=== PATIENT | male | born 1955 | race Caucasian/White ===

== ENCOUNTER 2020-08-23 06:49 | Outpatient (REF) | payer OTHER, SELFPAY ==
[2020-08-23 07:16] LABS: MANUAL DIFF FLAG NO
[2020-08-23 07:33] LABS: Basophils Percent Auto 0.4 % (0-2); Eosinophils Absolute Auto 0.1 X10*3/uL (0.0-0.4); Eosinophils Percent Auto 2.4 % (0-4); Hematocrit 41.6 % (42-52); Hemoglobin 14.4 g/dl (14.0-18.0); Imm Gran Abs Auto 0.01 X10*3/uL (0.00-0.03); Imm Gran Pct Auto 0.2 % (0.0-0.4); Lymphocytes Absolute Auto 1.3 X10*3/uL (1.2-4.9); Lymphocytes Percent Auto 25.4 % (20-40); Mean Corpuscular HGB Conc 34.6 g/dl (31.0-36.0); Mean Corpuscular Hemoglobin 31.3 pg (27.0-33.0); Mean Corpuscular Volume 90.4 fL (80-98); Mean Platelet Volume 9.5 fL (9.4-12.4); Monocytes Absolute Auto 0.3 X10*3/uL (0.1-1.2); Monocytes Percent Auto 5.7 % (2-11); Neutrophils Absolute Auto 3.3 X10*3/uL (2.0-8.3); Neutrophils Percent Auto 65.9 % (45-73); Platelet Count 209 X10*3/uL (160-400); Red Cell Distribution Width 12.7 % (11.0-16.0); White Blood Count 5.1 X10*3/uL (4.8-10.8)
== END 2020-08-23 06:50 | disposition home or self-care (01) ==
LOC: HO.LAB 06:49
PROVIDERS: Visit Provider Family Medicine
DX: D72.819 Decreased white blood cell count, unspecified (principal)
CPT/HCPCS: 36415; 85025

== ENCOUNTER 2021-06-17 07:17 | Day surgery (SDC) | payer OTHER, SELFPAY ==
[2021-06-13 10:20] VITALS: BMI 26.0
--- NOTE | 2021-06-16 12:54 | HO.ANESPROP2 ---
Documented by User: Jamia Molina NP 06/16/21 12:56 HPI - Anesthesia Eval Consult details Narrative: 65yo M for Colonoscopy [facility] Past Medical History Medical History (Updated 06/16/21 @ 12:56 by Jamia Molina NP) No pertinent past medical history Surgical History Surgical History (Updated 06/13/21 @ 10:20 by Yasmine Mcguire, RN) Hx of colonoscopy Social History Social History Patient Tobacco Use Status: Never used Tobacco Use of substances other than those prescribed or required for medical reasons: No Are you DNR?: No Advance Directives: No Advance Directives Information Provided: No Meds Allergies Allergy/AdvReac Type Severity Reaction Status Date / Time No Known Allergies Allergy Verified 06/17/21 07:42 Home Medications Medication Instructions Recorded Confirmed Last Taken Type No Known Home Meds 06/17/21 06/17/21 Unknown History Exam Exam Date and Time: June 16, 2021 1254 Height,Weight and Vital Signs: Height 6 ft 2 in Weight 92.079 kg Assessment and Plan Assessment Anesthesia Assessment: Chart Reviewed Documented by User: Arlette Loya MD 06/17/21 08:26 [facility] Active Problems Active Problems: Healthy Past Medical History Medical History (Updated 06/16/21 @ 12:56 by Jamia Molina NP) No pertinent past medical history Family History Family history of problems with anesthesia: No Surgical History Surgical History (Updated 06/13/21 @ 10:20 by Yasmine Mcguire RN) Hx of colonoscopy History of Problems with Anesthesia: No Social History Social History Patient Tobacco Use Status: Never used Tobacco Use of substances other than those prescribed or required for medical reasons: No Are you DNR?: No Advance Directives: No Advance Directives Information Provided: No Meds Allergies Allergy/AdvReac Type Severity Reaction Status Date / Time No Known Allergies Allergy Verified 06/17/21 07:42 Home Medications Medication Instructions Recorded Confirmed Last Taken Type No Known Home Meds 06/17/21 06/17/21 Unknown History Exam Height,Weight and Vital Signs: Height 6 ft 2 in Weight 92.079 kg Vital Signs Temp Pulse Resp BP Pulse Ox 06/17/21 07:40 98.0 F 69 16 136/76 99 Airway Mallampati Class: II TM Dist: >3cm Neck ROM: Full Loose/Missing/Broken Teeth: No Heart: RRR Lungs: CTAB Assessment and Plan Assessment Anesthesia Assessment: Anesthesia Plan Discussed Final Anesthetic Review Family History of Problems with Anesthesia: No History of Problems with Anesthesia: No NPO: Yes ASA Class: I Final Preanesthetic Review: No Changes in Pt Med Stat, Meds/Allgs Chart Reviewed, Consent Obtained/Reviewed and Anes Risks/Benef Reviewed Patient Risk: Low Procedure Risk: Low Assessment/Block/Sedation in SS: Assess/Block/Sedation-SS Anesthetic Plan Anesthetic Plan: MAC: Disposition: Standard PACU
[2021-06-17 07:39] VITALS: BMI 26.0
[2021-06-17 07:40] VITALS: BP 136/76; PULSE 69; RESP 16; TEMP 36.7; O2SAT 99
[2021-06-17] MEDS: Lactated Ringers 1,000 ML 100 ML IVCONT (07:59)
[2021-06-17 09:25] VITALS: BP 123/75; PULSE 64; RESP 16; TEMP 36.3; O2SAT 98
--- NOTE | 2021-06-17 09:30 | P.BOP_ITS ---
Brief Operative Note Date of Service: 06/17/21 Pre-op diagnosis: Screening Post-op diagnosis: other (Colon polyps) Procedure: Colonoscopy to the cecum and TI with hot snare polypectomy of TC polyp, and biopsy and removal of polyp Surgeon: Houston Boothe Anesthesia: MAC Was an Office Services Representative used for this Procedure?: No Estimated blood loss (mL): 2.0 Pathology: other (A. Transverse colon polyp B. Ascending colon polyp) Condition: stable Disposition: PACU
[2021-06-17 09:40] VITALS: BP 121/76; PULSE 65; RESP 16; TEMP 36.3; O2SAT 99
--- NOTE | 2021-06-17 09:49 | OP_ITS ---
SURGEON: Houston Boothe MD INDICATIONS: The patient presents for followup of colorectal cancer screening and personal history of tubular adenoma of the colon. Full consent has been obtained from him for this, including risks of bleeding and perforation. PREOPERATIVE DIAGNOSIS: POSTOPERATIVE DIAGNOSIS: PROCEDURE PERFORMED: Colonoscopy to the cecum and terminal ileum with hot snare polypectomy, and biopsy and removal of polyp. ESTIMATED BLOOD LOSS: COMPLICATIONS: ANESTHESIA: Monitored anesthesia care. ASSISTANTS: SPECIMENS: PREOPERATIVE DIAGNOSES: Colorectal cancer screening and personal history of tubular adenoma of the colon. POSTOPERATIVE DIAGNOSES: Colorectal cancer screening and personal history of tubular adenoma of the colon, colon polyps, diverticulosis, and internal hemorrhoids. DESCRIPTION OF PROCEDURE: The patient was placed in the left lateral decubitus position. The digital rectal exam revealed no abnormalities. The Olympus video pediatric colonoscope was entered into the rectum and advanced easily to the cecum. Once in the cecum, I did identify normal-appearing cecal pouch with appendiceal orifice and a normal-appearing ileocecal valve. The terminal ileum was cannulated and appeared normal. The scope was withdrawn back in the colon. The entire cecum and ileocecal valve appeared normal. The scope was slowly withdrawn assessing all mucosal surfaces carefully. Preparation was excellent. In the proximal ascending colon, was an approximately 3 or 4 mm polyp, which was biopsied and completely removed with cold biopsy forceps. In the transverse colon, was an approximately 10 mm polyp, which was removed with hot snare polypectomy and recovered by suction. The polypectomy site appeared clean, without any sign of residual polyp nor bleeding. I did not visualize any sign of other polyps, colitis, nor angiodysplasia. There was a mild amount of sigmoid diverticulosis. In the rectum, scope was retroflexed visualizing small internal hemorrhoids, but no other pathology. The rectal mucosa appeared normal. The scope was straightened out and withdrawn from the patient. He tolerated the procedure well and was returned to the recovery area in stable condition. IMPRESSION: 1. Colon polyps. 2. Diverticulosis. 3. Internal hemorrhoids. PLAN: The results of the pathology will be checked. I would recommend a repeat colonoscopy in 5 years. He was advised not to use any aspirin and NSAIDs for 1 week. MD CHARANJIT Jacobsen/KATTY / [id number]
== END 2021-06-17 10:05 | disposition home or self-care (01) ==
PROVIDERS: PCP Family Medicine; Visit Provider Internal Medicine
PROC: 0DJD8ZZ Inspection of Lower Intestinal Tract, Via Natural or Artificial Opening Endoscopic (ICD-10-PCS; CPT 45378; principal; 2021-06-17 08:30)
DX: Z12.11 Encounter for screening for malignant neoplasm of colon (principal); Z86.010 Personal history of colon polyps; D12.2 Benign neoplasm of ascending colon; D12.3 Benign neoplasm of transverse colon; K57.30 Diverticulosis of large intestine without perforation or abscess without bleeding; K64.8 Other hemorrhoids
CPT/HCPCS: 45385; 45380; 88305

== ENCOUNTER 2022-08-19 07:26 | Outpatient (REF) | payer MEDICARE, SELFPAY ==
[2022-08-19 09:00] LABS: Glucose Fasting 115 mg/dL (60-99)
[2022-08-19 09:24] LABS: Prostate Specific Antigen 0.37 ng/mL (<0.05-4.0)
== END 2022-08-19 07:27 | disposition home or self-care (01) ==
LOC: HO.LAB 07:26
PROVIDERS: PCP Family Medicine; Visit Provider Family Medicine
DX: Z12.5 Encounter for screening for malignant neoplasm of prostate (principal); N40.0 Benign prostatic hyperplasia without lower urinary tract symptoms; Z83.3 Family history of diabetes mellitus
CPT/HCPCS: 36415; 82947; 84153

== ENCOUNTER 2023-05-14 06:55 | Outpatient (REF) | payer MEDICARE, SELFPAY ==
[2023-05-14 07:50] LABS: Estimated Average Glucose 103 mg/dL; Hemoglobin A1c % 5.2 % (<6.0)
[2023-05-14 08:37] LABS: Alanine Aminotransferase 34 U/L (0-40); Aspartate Amino Transferase 28 U/L (5-37); Cholesterol 211 mg/dL (<200); Glucose Fasting 117 mg/dL (60-99); HDL Cholesterol 46 mg/dL (>40); LDL Cholesterol Calculated 137 mg/dL (<100); Triglycerides 141 mg/dL (<150)
== END 2023-05-14 06:56 | disposition home or self-care (01) ==
LOC: HO.LAB 06:55
PROVIDERS: PCP Family Medicine; Visit Provider Family Medicine
DX: E78.00 Pure hypercholesterolemia, unspecified (principal); R73.9 Hyperglycemia, unspecified
CPT/HCPCS: 36415; 80061; 82947; 83036; 84450; 84460

== ENCOUNTER 2023-10-09 13:51 | Outpatient (REF) | payer MEDICARE, SELFPAY ==
--- NOTE | ~2023-10-09 | XR_ITS ---
EXAMINATION: XR CHEST CLINICAL INFORMATION: Cough, wheezing COMPARISON: Chest 11/28/2009 TECHNIQUE: 2 views of the chest were obtained. FINDINGS: The lungs are hyperinflated, as noted before. There is slight increased streaky density in the left lower lobe and right middle lobe consistent with atelectasis and/or pneumonia. No pleural effusion. Mild biapical pleural thickening is unchanged. No significant abnormality is noted involving the heart, mediastinum, bony thorax or soft tissues. XR/XR chest 2V IMPRESSION: Left lower lobe and right middle lobe atelectasis and/or pneumonia.
== END 2023-10-09 13:52 | disposition home or self-care (01) ==
LOC: HO.XRAY 13:51
PROVIDERS: PCP Family Medicine; Visit Provider Family Medicine
DX: R05.9 Cough, unspecified (principal); R06.2 Wheezing
CPT/HCPCS: 71046

== ENCOUNTER 2024-12-20 07:15 | Outpatient (REF) | payer MEDICARE, SELFPAY ==
[2024-12-20 08:32] LABS: Glucose Fasting 114 mg/dL (60-99)
[2024-12-20 08:35] LABS: Estimated Average Glucose 111 mg/dL; Hemoglobin A1c % 5.5 % (<6.0)
== END 2024-12-20 07:16 | disposition home or self-care (01) ==
LOC: HO.LAB 07:15
PROVIDERS: PCP Family Medicine; Visit Provider Family Medicine
DX: I10 Essential (primary) hypertension (principal); Z13.1 Encounter for screening for diabetes mellitus
CPT/HCPCS: 36415; 82947; 83036

== ENCOUNTER 2025-05-27 09:18 | Outpatient (REF) | payer MEDICARE, SELFPAY ==
--- NOTE | ~2025-05-27 | XR_ITS ---
EXAMINATION: XR ANKLE, LEFT CLINICAL INFORMATION: M25.572 - Pain in left ankle and joints of left foot COMPARISON: None available. TECHNIQUE: AP, lateral, and mortise views of the left ankle. FINDINGS: No acute cortical disruption or malalignment. No lytic or blastic lesions. No subcutaneous emphysema. No joint effusion. Small exostosis at the Achilles tendon insertion. Small plantar calcaneal spur. XR/XR ankle LT min 3V IMPRESSION: Enthesopathy, Achilles tendon. Small plantar calcaneal spur. Electronically signed by: Gurmeet Boyle MD 05/27/2025 11:07 AM [facility]
[2025-05-27 10:01] LABS: MANUAL DIFF FLAG NO
[2025-05-27 10:45] LABS: Hematocrit 42.5 % (42.0-52.0); Hemoglobin 14.6 g/dl (14.0-18.0); Imm Gran Abs Auto 0.02 X10*3/uL (0.00-0.03); Imm Gran Pct Auto 0.4 % (0.0-0.4); Lymphocytes Absolute Auto 1.1 X10*3/uL (1.2-4.9); Mean Corpuscular HGB Conc 34.4 g/dl (31.0-36.0); Mean Corpuscular Hemoglobin 30.8 pg (27.0-33.0); Mean Corpuscular Volume 89.7 fL (80.0-98.0); NRBC Abs Auto 0.000 X10*3/uL (0.0-0.012); NRBC Pct Auto 0.0 /100WBC (0.0-0.2); Platelet Count 203 X10*3/uL (160-400); Red Blood Count 4.74 X10*6/uL (4.60-5.80); White Blood Count 5.2 X10*3/uL (4.8-10.8)
[2025-05-27 11:55] LABS: HBS Num1 > 1000.00 mIU/mL (0-7.99); HBc Num1 5.14 S/CO (0.00-0.79); HBsAGNum1 0.29 S/CO (0.00-0.99); HIV Num 1 0.10 S/CO (0.00-0.99); Hepatitis A Antibody IgM 0.16 Index (0-0.79); Hepatitis B Surface Antigen Negative (Negative); ~HepC Num1 0.07 S/CO (0.00-0.79); ~Hepatitis A Antibody IgM Nonreactive (Nonreactive); ~Hepatitis B Surface Antibody REACTIVE (Nonreactive); ~Hepatitis C Antibody Nonreactive (Nonreactive)
[2025-05-27 12:28] LABS: Microalbum/Creatinine Ratio Ur 247.2 ug/mg cr (<30)
[2025-05-27 13:07] LABS: HBc Num2 5.21 S/CO
[2025-05-27 13:08] LABS: HBc Num3 5.16 S/CO
[2025-05-27 13:28] LABS: Alanine Aminotransferase 56 U/L (0-40); Albumin Level 4.8 g/dL (3.5-5.0); Alkaline Phosphatase 72 U/L (39-117); Anion Gap 13 (12-20); Aspartate Amino Transferase 38 U/L (5-37); Blood Urea Nitrogen 24 mg/dL (9-16); Calcium 9.8 mg/dL (8.4-10.2); Carbon Dioxide 27 mmol/L (22-29); Chloride 107 mmol/L (96-108); Cholesterol 219 mg/dL (<200); Estimated Glomerular Filt Rate 57; HDL Cholesterol 50 mg/dL (>40); Potassium 4.8 mmol/L (3.3-5.1); Sodium 142 mmol/L (135-145); Total Protein 7.4 g/dL (6.5-8.0); Triglycerides 117 mg/dL (<150)
[2025-05-28 08:41] LABS: Syphilis Screen Nonreactive (Nonreactive)
== END 2025-05-27 09:19 | disposition home or self-care (01) ==
LOC: HO.LAB 09:18
PROVIDERS: PCP Student in an Organized Health Care Education/Training Program; Visit Provider Student in an Organized Health Care Education/Training Program
DX: Z00.01 Encounter for general adult medical examination with abnormal findings (principal); M25.572 Pain in left ankle and joints of left foot; Z13.31 Encounter for screening for depression; Z13.39 Encounter for screening examination for other mental health and behavioral disorders; Z13.1 Encounter for screening for diabetes mellitus; Z13.6 Encounter for screening for cardiovascular disorders
CPT/HCPCS: 36415; 73610; 80053; 80061; 82043; 82306; 82570; 83036; 84443; 85025; 86704; 86706; 86709; 86780; 86803; 87340; 87389; 96127; 99202; 99387

== ENCOUNTER 2025-05-27 09:18 | Outpatient (AMB) | payer MEDICARE, SELFPAY ==
--- NOTE | 2025-05-27 09:15 | MHC.PC.OV ---
Vital Signs 05/27/25 09:25 Height 6 ft 1.78 in Weight 203 lb BMI 26.2 BP 120/72 Blood Pressure Location Lt brachial Position Sitting Respiration 18 Pulse 72 Pulse Source Pulse Oximeter Temp 97.4 F Temp Source Temporal Artery Scan Pulse Oximetry (%) 98 Oxygen Delivery Method Room Air Intake Visit Reasons: 6 month follow up-jemma pt Intelligence Senior Sergeant Required: No Accompanied by: Self / Same As Patient Allergies No Known Allergies Allergy (Verified 05/27/25 09:15) Tobacco use date assessed: 05/27/25 Fall risk assessment: No Falls in past year Last assessed Fall Risk: 05/27/25 Dental Screening Dental Screen Date: 05/27/25 Did you have a dental visit in the last 12 months?: Yes Did you have a dental problem in the last 6 months where you did not have access to dental care?: No Was dental information given to patient?: Patient has dentist HPI HPI Comments History of Present Illness Details History of Present Illness The patient is a 69-year-old male presenting for a new patient and annual wellness visit, and with a chief complaint of heel pain. The heel pain started approximately two weeks ago and is located in the back of the heel. The pain is primarily present with ambulation and is exacerbated after periods of sitting, requiring him to work it back and move it around before walking normally. The patient reports that the pain has improved over the last two days. He denies any specific injury, fall, or trauma to the heel. 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 The patient denies any past medical conditions, surgeries, or known allergies. His last colonoscopy was in 2020 and is not due again until June of next year. A previous HbA1c from earlier this year was 5.5. Medical History: - Denies any past or current medical conditions. Surgical History: - Denies any history of surgeries. Family History: - Denies any family history of heart disease, diabetes, or cancer. Diagnostic Results: - Lab Results: A prior HbA1c from early 2022 was 5.5%. - Vital Signs: Blood pressure was 120/72 mmHg. Social History - Occupation: Former data processing manager for 32 years, currently still working. - Housing: Reports having a safe and stable place to live. - Substance Use: Denies smoking tobacco and illicit drug use. - Alcohol Use: Reports drinking alcohol a couple of times per month, consuming one or two drinks per occasion. - Mood: Reports good mood and denies depression or anxiety. [facility] Medical History (Updated 05/27/25 @ 09:37 by Mina Gonzalez MD) Annual physical exam Ankle pain, left No pertinent past medical history Surgical History (Updated 01/20/25 @ 14:21 by Kasie Dickson) Hx of colonoscopy (~06/17/21) Social History Housing: House Patient Tobacco Use Status: Never used Tobacco e-Cigarette/Vaping Use: Never Used service: No Current occupational status: employed Questionnaire PHQ-9 Over the last 2 weeks, how often have you been bothered by any of the following problems? 1. Little interest or pleasure in doing things: not at all 2. Feeling down, depressed, or hopeless: not at all 3. Trouble falling or staying asleep, or sleeping too much: not at all 4. Feeling tired or having little energy: not at all 5. Poor appetite or overeating: not at all 6. Feeling bad about yourself - or that you are a failure or have let yourself or your family down: not at all 7. Trouble concentrating on things, such as reading the newspaper or watching television: not at all 8. Moving or speaking so slowly that other people could have noticed. Or the opposite - being so fidgety or restless that you have been moving around a lot more than usual: not at all 9. Thoughts that you would be better off or of hurting yourself in some way: not at all Total score: 0 Depression Screening Interpretation: Negative Depression Screening Done: Yes 35992 - PHQ-9 Billing: Yes Source: Developed by Drs. Houston Moody, Amy Golden, Denzel Tiwari and colleagues, with an educational christine from [employer]. Thrive Questionnaire Date Thrive assessed: 05/27/25 I am a: Patient What is your living situation today?: I have a steady place to live Within the past 12 months, did the food you bought not last and you didn't have the money to get more?: Never true Within the past 12 months, did you worry whether your food would run out before you got money to buy more?: Never true Do you have trouble paying for medicines?: No Do you have trouble getting transportation to medical appointments?: No Do you have trouble paying your heating and electricity bill?: No Do you have trouble taking care of your child, family member or friend?: No Do you have trouble with day-to-day activities such as bathing, preparing meals, shopping, managing finances, etc.?: No Are you currently unemployed and looking for a job?: No Are you interested in more education?: No THRIVE Score: 0 AUDIT C Alcohol Use Questionnaire (AUDIT-C) 1. How often do you have a drink containing alcohol?: 2-4 times a month 2. How many drinks containing alcohol do you have on a typical day when you are drinking?: 1 or 2 3. How often do you have six or more drinks on one occasion?: Never Total Score: 2 Score Reviewed/Action Taken: Yes GIOVANNI-7 AMB Questionnaire GIOVANNI-7 Date GIOVANNI - 7 assessed: 05/27/25 Feeling nervous, anxious, or on edge: 0 = Not at all Not being able to stop or control worryin = Not at all Worrying too much about different things: 0 = Not at all Trouble relaxin = Not at all Being so restless that it is hard to sit still: 0 = Not at all Becoming easily annoyed or irritable: 0 = Not at all Feeling afraid as if something awful might happen: 0 = Not at all Total GIOVANNI-7 score (0-4 normal; 5-9 mild; 10-14 moderate; 15-21 severe): 0 Source: Developed by Drs. Houston Moody, Amy Golden, Denzel Tiwari and colleagues, with an educational christine from [employer]. GIOVANNI-7 Assessment Billing GIOVANNI-7 Assessment Tool: GIOVANNI-7 Assessment 58994 Review of Systems Narrative Review of Systems - Musculoskeletal: Reports pain in the heel, which began two weeks ago and is worse with walking, especially after periods of rest. - Psychiatric: Reports good mood. - Psychiatric: Denies depression or anxiety. - All other systems reviewed and are negative. All systems reviewed & are unremarkable except as reviewed in HPI and above Physical exam (Primary Care) Vital Signs: Last Vital Signs Temp 97.4 F 05/27/25 09:25 Pulse 72 05/27/25 09:25 Resp 18 05/27/25 09:25 BP 120/72 05/27/25 09:25 Pulse Ox 98 05/27/25 09:25 Oxygen Delivery Method Room Air 05/27/25 09:25 BMI result Body Mass Index 26.2 Tobacco/Smoking Status: Tobacco use Status Tobacco use date assessed 05/27/25 05/27/25 09:15 Patient Tobacco Use Status Never used Tobacco 05/27/25 09:15 e-Cigarette/Vaping Use Never Used 05/27/25 09:27 PHQ-9: PHQ-9 Score PHQ-9: Total score 0 05/27/25 09:30 Depression Screening Interpretation: Negative Thrive Assessment: Date of Thrive Assessment Date Thrive assessed 05/27/25 05/27/25 09:27 Narrative Physical Exam General: +Alert and oriented, Well nourished, No acute distress. Eye: Pupils are equal, round and reactive to light, Intact accommodation, Extraocular movements are intact, Normal conjunctiva, Vision unchanged. HENT: Normocephalic, Atraumatic, Tympanic membranes are clear, Normal hearing, Oral mucosa is moist, No pharyngeal erythema, Ear canals patent. Respiratory: Lungs CTA bilaterally, No wheeze, Respirations are non-labored. Cardiovascular: Regular rate, Regular rhythm, S1 auscultated, S2 auscultated, No murmur, Good pulses equal in all extremities, Normal peripheral perfusion, No edema. Gastrointestinal: Soft, Non-tender, Non-distended, Normal bowel sounds, No organomegaly. Musculoskeletal: Normal range of motion, Normal strength, No tenderness, No swelling, No deformity, Normal gait. Noted tenderness at the heel with a bump present, possibly related to plantar fasciitis. Integumentary: Warm, Dry, Tavernier, Intact. Neurologic: Alert, Oriented, Normal sensory, Normal motor function, No focal defects, Cranial Nerves II-XII are grossly intact, Normal deep tendon reflexes. Psychiatric: Cooperative, Appropriate mood & affect, Normal judgment. Coding Level of Care Code New Pt Level 3 (72056) New Pt Prev Care >65yr (55957) Diagnoses Acute left ankle pain M25.572 Chronicity: acute Annual physical exam Z00.00 Additional Codes GIOVANNI-7 Assessment Billing - GIOVANNI-7 Assessment Tool: GIOVANNI-7 Assessment 21963 ([id number]) PHQ-9 - 88539 - PHQ-9 Billing: Yes ([id number]) Comment [id number] Assessment & Plan Assessment & Plan (1) Ankle pain, left: Comment: - The patient's presentation of heel pain, which is worse after rest, is suspicious for plantar fasciitis, though other etiologies must be considered given the palpable bump and occupational history. - An x-ray of the heel will be obtained to evaluate for osseous pathology. - If there are significant findings on imaging, a referral to podiatry will be initiated. - The patient is encouraged to continue stretching exercises. Code(s): M25.572 - Pain in left ankle and joints of left foot Category: Medical Qualifiers: Chronicity: acute Qualified Code(s): M25.572 - Pain in left ankle and joints of left foot (2) Annual physical exam: Comment: - The patient is a healthy older adult establishing care. - Baseline comprehensive blood work will be obtained, including a complete blood count, electrolytes, thyroid studies, vitamin D, glucose, cholesterol, HIV, and hepatitis screening. - He is up to date on his colon cancer screening. - He has been advised to receive the influenza and COVID-19 vaccines. - The plan is to follow up in one year for an annual wellness visit, or sooner if needed. Code(s): Z00.00 - Encounter for general adult medical examination without abnormal findings Category: Medical Plan: Health Maintenance: - Colonoscopy: Last performed in 2020, next screening due in June of next year. - Vaccinations: Recommended to receive influenza and COVID-19 shots. - Laboratory Screening: Ordered comprehensive baseline blood work, including CBC, electrolytes, thyroid function, vitamin D, sugars, cholesterol, HIV, and hepatitis panel. - Follow-up: Scheduled for an annual visit in one year. Patient was informed and verbally consented to the use of an ambient scribe for clinic note documentation during this visit. Vital signs reviewed. Comprehensive history, review of systems, and physical exam completed. Medications, allergies, and problem list reviewed and updated. Counseling provided on nutrition, regular exercise, sleep hygiene, and moderation of alcohol use. Discussed age-appropriate screenings (mammogram, colonoscopy, Pap, bone density) and immunizations (flu, COVID, shingles, Tdap). Screened for depression, fall risk, and home safety; no current concerns. Discussed stress management, dental and vision care, and importance of ongoing preventive follow-up. Routine labs ordered for metabolic and lipid screening. Patient educated on healthy lifestyle and agrees with the plan. Plan I discussed with the patient that his heel pain could potentially be due to plantar fasciitis. I informed him we will obtain an x-ray of his heel to investigate further. I explained that if any significant issues are found on the x-ray, I will refer him to a display fabrication supervisor. I advised him that as this is a new patient visit, we will be performing a comprehensive set of baseline blood tests, and I will call him if any results are abnormal. I also recommended he get his flu and COVID shots. We will plan to see him back in one year for his next annual visit, and he should call if any concerns arise before then. Orders: Orders Hemoglobin A1c Today Z00.00 - Encounter for general adult medical examination without abnormal findings Hepatitis A,B,C Profile Today Z00.00 - Encounter for general adult medical examination without abnormal findings Lipid Panel Today Z00.00 - Encounter for general adult medical examination without abnormal findings Vitamin D 25-OH Total Today Z00.00 - Encounter for general adult medical examination without abnormal findings Complete Blood Count Auto Diff Today Z00.00 - Encounter for general adult medical examination without abnormal findings Comprehensive Met. Panel Today Z00.00 - Encounter for general adult medical examination without abnormal findings HIV Ab/Ag Today Z00.00 - Encounter for general adult medical examination without abnormal findings Microalbumin, Random (w Creat) Today Z00.00 - Encounter for general adult medical examination without abnormal findings Syphilis Screen Today Z00.00 - Encounter for general adult medical examination without abnormal findings TSH reflex Free T4 Today Z00.00 - Encounter for general adult medical examination without abnormal findings XR ankle LT min 3V Today M25.572 - Pain in left ankle and joints of left foot Patient Instructions: - Please go to the lab across the lobo to have your blood drawn. - After your blood draw, please go to the radiology department on the second floor of the hospital for an x-ray of your heel. - It is recommended that you get your flu shot and COVID shot at a local pharmacy. - We will call you if any of your test results are abnormal. - Please schedule your next appointment for one year from now at the front office specialist before you leave. - If you have any new concerns or problems, please call our office.
[2025-05-27 09:25] VITALS: BP 120/72; PULSE 72; RESP 18; TEMP 36.3; O2SAT 98; BMI 26.2
--- OUTSIDE RECORDS SUMMARY | 2025-05-27 17:14 | XMS_ITS | Patient Health Record ---
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 Section Notes: Nonsmoker; no sig alcohol Nonsmoker; no sig alcohol Nonsmoker; no sig alcohol Problems Problem Type SNOMED Code ICD Code Onset Dates Problem Status W/U Status Risk Notes Problem Screening for malignant neoplasm of colon (433040516) Encounter for screening for malignant neoplasm of colon (Z12.11) Active confirmed Problem History of adenomatous polyp of colon (338241651) History of adenomatous polyp of colon (Z86.010) Active confirmed Problem Screening for malignant neoplasm of rectum (301175039) Encounter for screening for malignant neoplasm of rectum (Z12.12) Active confirmed Problem Blood in stool (070814792) Blood in stool (K92.1) Active confirmed Problem Preprocedural examination (391542837168072) Preprocedural examination (Z01.818) Active confirmed Problem Computed tomography result abnormal (022328452) Abnormal CT scan, colon (R93.3) Active confirmed Problem History of adenomatous polyp of colon (561847195) Hx of adenomatous colonic polyps (Z86.010) Active confirmed Problem Internal hemorrhoids (59460467) Internal hemorrhoids (K64.8) Active confirmed Problem Diverticulosis of colon (536236169) Diverticulosis of colon (K57.30) Active confirmed Plan Of Treatment Pending Test Test Name Order Date Pathology 06/17/2021 Future Test Test Name Order Date COLONOSCOPY 07/21/2015 COLONOSCOPY 04/13/2021 Insurance Providers Payer Name Payer Address Payer Phone Subscriber Number Group Number Insured Name Patient Relationship to Insured Coverage Start Date Coverage End Date [facility] [address] [place] [phone] [id number] LEILANI PEACE Self - patient is the insured Medical (General) History Medical History History ICD Code Screening Colonoscopy 11/2010 --5 tubular adenomas removed,sigmoid diverticulosis, internal hemorrhoids Denies [place],DM,CVA,Lung disease,renal dise ase Colonoscopy 10/2015--small tu bular adenomas removed, diverticulosis, small internal hemorrhoids Surgical History Surgery Date(Month/Year)
== END 2025-05-27 09:36 | disposition home or self-care (01) ==
PROVIDERS: PCP Student in an Organized Health Care Education/Training Program; Visit Provider Student in an Organized Health Care Education/Training Program
DX: Z00.00 Encounter for general adult medical examination without abnormal findings (principal); M25.572 Pain in left ankle and joints of left foot

== ENCOUNTER → 2025-05-27 10:02 | Outpatient (BNV) | payer MEDICARE, SELFPAY | PROVIDERS: PCP Student in an Organized Health Care Education/Training Program; Visit Provider Radiology Diagnostic Radiology | DX: M76.62 Achilles tendinitis, left leg (principal); M77.32 Calcaneal spur, left foot | CPT/HCPCS: 73610 ==